=== PATIENT | male | born 1935 | race Caucasian/White ===

== ENCOUNTER → 2016-07-05 | Outpatient (REF) | payer MEDICARE, OTHER ==
[2016-07-05 19:48] LABS: IMMUNOGLOBULIN G 1110 MG/DL (681-1648); IMMUNOGLOBULIN M 41.7 MG/DL (40-230); TOTAL PROTEIN 9.7 GM/DL (6.4-8.2)
[2016-07-06 12:02] LABS: ALBUMIN % 35.4 % (55.8-66.1)
[2016-07-06 12:03] LABS: ALBUMIN 3.43 GM/DL (3.29-5.55); GAMMA GLOBULIN % 9.9 % (11.1-18.8)
[2016-07-08 00:06] LABS: FREE KAPPA LIGHT CHAINS SERUM 60.31 mg/L (3.30-19.40); FREE LAMBDA LIGHT CHAINS SERUM 11.39 mg/L (5.71-26.30); KAPPA/LAMBDA RATIO SERUM 5.29 (0.26-1.65)
== END ==
LOC: M LAB REF 16:25
PROVIDERS: ATTEND Internal Medicine Medical Oncology
DX: D47.2 Monoclonal gammopathy (principal)

== ENCOUNTER → 2017-01-11 | Outpatient (REF) | payer MEDICARE, OTHER ==
[2017-01-11 14:12] LABS: IMMUNOGLOBULIN G 1020 MG/DL (681-1648); IMMUNOGLOBULIN M 50.4 MG/DL (40-230); TOTAL PROTEIN 9.8 GM/DL (6.4-8.2)
[2017-01-13 00:06] LABS: BETA 2 MICROGLOBULIN 7.2 mg/L (0.6-2.4); FREE KAPPA LIGHT CHAINS SERUM 54.4 mg/L (3.3-19.4); FREE LAMBDA LIGHT CHAINS SERUM 11.1 mg/L (5.7-26.3); KAPPA/LAMBDA RATIO SERUM 4.9 (0.26-1.65)
[2017-01-16 12:35] LABS: ALBUMIN 3.19 GM/DL (3.29-5.55); ALBUMIN % 32.5 % (55.8-66.1); GAMMA GLOBULIN % 8.9 % (11.1-18.8)
== END ==
LOC: M LAB REF 13:35
PROVIDERS: ATTEND Internal Medicine Medical Oncology
DX: D47.2 Monoclonal gammopathy (principal)

== ENCOUNTER → 2017-01-31 | Outpatient (REF) | payer MEDICARE, OTHER | LOC: M LAB REF 14:11 | PROVIDERS: ATTEND Internal Medicine Medical Oncology | DX: D47.2 Monoclonal gammopathy (principal) ==

== ENCOUNTER → 2017-04-17 | Outpatient (CLI) | payer MEDICARE, OTHER ==
[~2017-04-17] MED LIST: LIDOCAINE 1% MDV 20ML VIAL As Ordered
== END ==
LOC: M RADPRO 09:13
DX: C83.00 Small cell B-cell lymphoma, unspecified site (principal); N28.89 Other specified disorders of kidney and ureter
CPT/HCPCS: 38505

== ENCOUNTER → 2017-04-26 | Outpatient (REF) | payer MEDICARE, OTHER ==
[2017-04-27 11:19] LABS: HEPATITIS B SURFACE ANTIGEN NEGATIVE (NEGATIVE)
[2017-04-27 11:40] LABS: HEPATITIS B CORE ANTIBODY IGM NEGATIVE (NEGATIVE)
== END ==
LOC: M LAB REF 17:23
DX: C83.00 Small cell B-cell lymphoma, unspecified site (principal)
CPT/HCPCS: 87340

== ENCOUNTER → 2017-05-09 | Outpatient (REF) | payer MEDICARE, OTHER ==
[2017-05-09 13:48] LABS: HEPATITIS B SURFACE ANTIGEN NEGATIVE (NEGATIVE)
[2017-05-09 14:17] LABS: HEPATITIS B CORE ANTIBODY IGM NEGATIVE (NEGATIVE)
== END ==
LOC: M LAB REF 12:40
DX: C85.90 Non-Hodgkin lymphoma, unspecified, unspecified site (principal)
CPT/HCPCS: 87340

== ENCOUNTER → 2017-06-18 | Outpatient (CLI) | payer MEDICARE, OTHER ==
[~2017-06-18] MED LIST changes: +GASTROGRAFIN SOLUTION 30ML (Q9963) As Ordered; +ISOVUE-370 76% 100ML VIAL (Q9967) As Ordered; -LIDOCAINE 1% MDV 20ML VIAL As Ordered
== END ==
LOC: M RAD 08:29
DX: C88.4 Extranodal marginal zone B-cell lymphoma of mucosa-associated lymphoid tissue [MALT-lymphoma] (principal); Z92.21 Personal history of antineoplastic chemotherapy; R18.8 Other ascites; K76.89 Other specified diseases of liver; N28.89 Other specified disorders of kidney and ureter; J84.10 Pulmonary fibrosis, unspecified
CPT/HCPCS: Q9963

== ENCOUNTER → 2018-02-11 | Outpatient (CLI) | payer MEDICARE, OTHER ==
[~2018-02-11] MED LIST changes: +ASPI81TA85 PO; +FLOM0.4C39 PO; -GASTROGRAFIN SOLUTION 30ML (Q9963) As Ordered; +GASTROGRAFIN SOLUTION 30ML (Q9963) As Ordered ONE; +HYDR25TAB PO; +INDO50CA PO; -ISOVUE-370 76% 100ML VIAL (Q9967) As Ordered; +ISOVUE-370 76% 100ML VIAL (Q9967) As Ordered ONE; +METF500T4 PO; +PRAV40TA2 PO; +RAMI1CAP22 PO
--- NOTE | 2018-02-11 15:41 | REP ---
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 Assess response to treatment. Comparison CT study: June 18, 2017. CT contrast dose: 100 ml of intravenous Isovue 370. CT findings: There is no change in the appearance of scattered right hilar and pretracheal lymph nodes in the interval since the June 18, 2017 study. The right and left paravertebral soft tissue fullness seen inferiorly just above the diaphragmatic hiatus is again noted. The largest lymph node here is on the right and measures 1.1 cm in short axis dimension, previously 1.7 cm. This appears slightly smaller. The surrounding paravertebral soft-tissue infiltration is approximately the same. On the left posterolateral to the descending aorta. There is a 0.9 cm lymph node which is unchanged. No other significant intrathoracic disease. No infiltrate is seen. There are small bullae in the lung bases. There is calcific pleural plaquing visible on the diaphragm and right pleural surfaces. Some pleural plaquing and pleural calcification is also noted on the left. Impression: Stable paravertebral soft-tissue infiltration. There is a right paravertebral lymph node 1.1 cm in diameter today which of which previously measured 1.7 cm. Otherwise unchanged. Electronically Signed by Conor Moreno MD 02/11/2018 08:12 P
--- NOTE | 2018-02-11 15:42 | REP ---
CT abdomen pelvis with IV and oral contrast: History: Marginal zone lymphoma on chemotherapy. Monitoring response to treatment. Comparison CT study June 18, 2017. CT contrast dose: 100 ml of intravenous Isovue [address] findings: There is mild to moderate diffuse abdominal ascites again noted. The ascites appears to have increased slightly particularly in the pelvic reflections. There is a diffuse infiltrative soft tissue process surrounding the left kidney as before. The soft tissue rind surrounding the left kidney may be slightly thinner or smaller although it remains extensive. Hepatic cysts are again seen. There is a little induration in omental fat. Scattered in the mid abdomen. No small or large bowel soft tissue mass is seen. No obstructive lesion is seen. There is an intrarenal calculus in the right kidney without hydronephrosis. No pancreatic lesion is seen. There are cysts in the left kidney and in the liver, unchanged. Impression: Interval increase in the amount of ascites. Subtle decrease in the soft tissue rind infiltrating and surrounding the left kidney. Stable hepatic cysts. Electronically Signed by Conor Moreno MD 02/11/2018 08:13 P
== END ==
LOC: M RAD 09:19
PROVIDERS: ATTEND Internal Medicine Medical Oncology
DX: C88.4 Extranodal marginal zone B-cell lymphoma of mucosa-associated lymphoid tissue [MALT-lymphoma] (principal); K76.89 Other specified diseases of liver
CPT/HCPCS: 71260; 74177; Q9963; Q9967

== ENCOUNTER → 2018-03-12 | Outpatient (CLI) | payer MEDICARE, OTHER ==
[~2018-03-12] MED LIST changes: -GASTROGRAFIN SOLUTION 30ML (Q9963) As Ordered ONE; -ISOVUE-370 76% 100ML VIAL (Q9967) As Ordered ONE; +LIDOCAINE 1% MDV 20ML VIAL As Ordered ONE
[2018-03-12 10:51] LABS: APPEARANCE, BODY FLUID TURBID (CLEAR); ASCITES FL COLOR PINK (COLORLESS); SOURCE, BODY FLUID ASCITES
[2018-03-12 12:01] LABS: SOURCE, BODY FLUID ALBUMIN ASCITES
[2018-03-12 12:43] LABS: AMYLASE, BODY FLUID 39 U/L (NOT ESTABLISHED); LDH, BODY FLUID 90 U/L (NOT ESTABLISHED); SOURCE, BODY FLUID AMYLASE ASCITES; SOURCE, BODY FLUID GLUCOSE ASCITES; SOURCE, BODY FLUID LDH ASCITES; SOURCE, BODY FLUID TOT PROTEIN ASCITES; TOTAL PROTEIN, BODY FLUID 6.3 G/DL (NOT ESTABLISHED)
--- NOTE | 2018-03-12 18:07 | REP ---
Ultrasound-guided paracentesis The procedure was performed under the direct supervision of Dr. Moreno. The risks and benefits of the procedure were explained to the patient and informed consent was obtained. The largest pocket of fluid was localized in the right upper quadrant using ultrasound guidance. The skin was prepped and draped in a sterile fashion. 1% lidocaine was used as a local anesthetic. An 8-Azeri multi side-hole catheter was inserted using trocar technique. 200 ml of opaque pink colored fluid, which may be chylous fluid, was withdrawn and sent to the lab for analysis. The patient tolerated the procedure well and there were no immediate complications. After the appropriate amount of monitored convalescence the patient was discharged from the department. Reviewed by CARL Wright 03/12/2018 05:18 P Electronically Signed by Conor Moreno MD 03/12/2018 05:58 P
== END ==
LOC: M RADPRO 08:54
PROVIDERS: ATTEND Internal Medicine Medical Oncology
DX: R18.8 Other ascites (principal)

== ENCOUNTER → 2018-07-02 | Outpatient (CLI) | payer MEDICARE, OTHER ==
[~2018-07-02] MED LIST changes: +ACET-683 PO; -INDO50CA PO; +INDO50CA11 PO; -LIDOCAINE 1% MDV 20ML VIAL As Ordered ONE
--- NOTE | 2018-07-02 17:03 | REP ---
PET/CT: History: Restaging marginal zone lymphoma. The patient is status post chemotherapy. Comparisons: No comparison PET CTs. Comparison is made with CT studies of the chest, abdomen and pelvis, the most recent of which is from February 11, 2018. Infiltrative mass was discovered on CT abdomen and pelvis February 23, 2017 encasing the left kidney. TECHNIQUE: 52 minutes following the intravenous injection of a 9.54 mCi dose of F-18 FDG, three-dimensional PET scintigraphy is acquired from the skull base to the proximal thighs. Triplanar noncontrast CT scanning is acquired through the same anatomic range for attenuation correction, and image registration with scan parameters optimized to minimize radiation exposure to the patient. PET scintigraphy and CT datasets were fused and displayed on a workstation with multiplanar and projection display capability. PET/CT Findings: There is persistent soft tissue density infiltrating in the perirenal space around the left kidney fairly extensively. Although this has decreased since the original CT study February 23, 2017, it is seen to be mildly hypermetabolic. Maximum standard uptake value in this tissue ranges up to 4.19 in the left perirenal space. There is also mild increased uptake in the patient's mild scattered ascites. Maximum standard uptake value within this ascitic fluid ranges between 2.42 and 4.89. This is suggestive of peritoneal involvement or inflammation. There are new areas of interstitial lung disease involving the right middle lobe and right lower lobe in a peripheral pattern. There is mildly hypermetabolic parenchymal uptake associated with this in the right middle lobe and right lower lobe. Maximum standard uptake value in this pulmonary parenchymal disease ranges from 2.5-3.02. This interstitial disease is new when compared with the CT study of the chest dated February 11, 2018. It is nonspecific and could be pulmonary lymphangitic disease or inflammation. No other abnormal hypermetabolic uptake is seen. Incidental CT findings include calcific pleural plaquing bilaterally. Granulomatous lymph node calcifications in the subcarinal region, hepatic cysts, and some vascular calcification. Impression: Mildly hypermetabolic uptake is seen in the soft tissue disease encasing the left kidney as well as within the peritoneal space and in new areas of interstitial disease involving the right lower lobe and right middle lobe. Electronically Signed by Conor Moreno MD 07/02/2018 10:32 P
== END ==
LOC: M PLARAD 13:15
PROVIDERS: ATTEND Internal Medicine Hematology & Oncology
DX: R91.8 Other nonspecific abnormal finding of lung field (principal); C88.4 Extranodal marginal zone B-cell lymphoma of mucosa-associated lymphoid tissue [MALT-lymphoma]; Z92.21 Personal history of antineoplastic chemotherapy
CPT/HCPCS: 78815; A9552

== ENCOUNTER → 2018-07-10 | Outpatient (CLI) | payer MEDICARE, OTHER ==
[2018-07-10 12:49] LABS: ALBUMIN 3.4 GM/DL (3.2-5.2); ALT/SGPT 16 U/L (12-78); BILIRUBIN,DIRECT 0.1 MG/DL (0.0-0.2); BILIRUBIN,TOTAL 0.4 MG/DL (0.2-1.0); TOTAL PROTEIN 9.4 GM/DL (6.4-8.2)
[2018-07-10 12:57] LABS: HEPATITIS B SURFACE ANTIBODY NEGATIVE (POSITIVE)
[2018-07-10 13:08] LABS: HEPATITIS B SURFACE ANTIGEN NEGATIVE (NEGATIVE)
[2018-07-12 08:06] LABS: ANTI-MITOCHONDRIAL ANTIBODY <20.0 Units (0.0-20.0); ANTI-SMOOTH MUSCLE ANTIBODY 4 Units (0-19); ANTINUCLEAR ANTIBODIES DIRECT Negative (Negative); HEPATITIS A IgG TOTAL Negative (Negative); LIVER-KIDNEY MICROSOMAL ABY <20.1 Units (0.0-20.0)
== END ==
LOC: M LAB 11:23
PROVIDERS: ATTEND Internal Medicine Gastroenterology
DX: R18.8 Other ascites (principal)

== ENCOUNTER → 2018-07-17 | Outpatient (CLI) | payer MEDICARE, OTHER ==
[2018-07-17 13:15] LABS: SOURCE, BODY FLUID ASCITES
[2018-07-17 13:16] LABS: APPEARANCE, BODY FLUID CLOUDY (CLEAR); ASCITES FL COLOR PINK (COLORLESS)
[2018-07-17 14:48] LABS: SOURCE, BODY FLUID GLUCOSE ASCITES; SOURCE, BODY FLUID TOT PROTEIN ASCITES; SOURCE, BODY FLUID TRIG ASCITES; TOTAL PROTEIN, BODY FLUID 7.2 G/DL (NOT ESTABLISHED); TRIGLYCERIDE, BODY FLUID 977 MG/DL (NOT ESTABLISHED)
[2018-07-17 15:58] LABS: LDH, BODY FLUID 86 U/L (NOT ESTABLISHED); SOURCE, BODY FLUID LDH ASCITES
--- NOTE | 2018-07-18 11:01 | REP ---
Ultrasound-guided paracentesis The procedure was performed under the direct supervision of Dr. Nash. The risks and benefits of the procedure were explained to the patient and informed consent was obtained. The largest pocket of fluid was localized in the right upper quadrant using ultrasound guidance. The skin was prepped and draped in a sterile fashion. 1% lidocaine was used as a local anesthetic. An 8-Bolivian multi side-hole catheter was inserted using trocar technique. 725 ml of cloudy pain fluid was withdrawn and sent to the lab for analysis. The patient tolerated the procedure well and there were no immediate complications. After the appropriate amount of monitored convalescence the patient was discharged from the department. Reviewed by CARL Wright 07/17/2018 03:14 P Electronically Signed by Chalo Nash MD 07/18/2018 10:49 A
== END ==
LOC: M RADPRO 11:38
PROVIDERS: ATTEND Internal Medicine Hematology & Oncology
DX: C88.4 Extranodal marginal zone B-cell lymphoma of mucosa-associated lymphoid tissue [MALT-lymphoma] (principal); C85.80 Other specified types of non-Hodgkin lymphoma, unspecified site; R18.8 Other ascites; Z79.899 Other long term (current) drug therapy

== ENCOUNTER → 2019-08-25 | Outpatient (CLI) | payer MEDICARE ==
[~2019-08-25] MED LIST changes: -INDO50CA11 PO; +INDO50CA91 PO; +ISOVUE-300 61% 50ML VIAL As Ordered ONE; +METF-838 PO; -METF500T4 PO; +SODIUM BICARBONATE 8.4% INJ 50MEQ 50 ML VIAL As Ordered ONE
[2019-08-25 11:55] LABS: APPEARANCE, BODY FLUID TURBID (CLEAR); SOURCE, BODY FLUID PERITONEAL
[2019-08-25 12:33] LABS: SOURCE, BODY FLUID TOT PROTEIN PERITONEAL
[2019-08-25 13:07] VITALS: BP 125/63
--- NOTE | 2019-08-25 14:57 | REP ---
Ultrasound-guided paracentesis The procedure was performed by CARL Potts, under the direct supervision of Dr. Moreno. The risks and benefits of the procedure were explained to the patient and informed consent was obtained both verbally and written. Directly prior to the start of the procedure, a formal timeout was completed in the procedure room. Under ultrasound guidance, the largest pocket of fluid in the right flank was localized and skin was marked. The skin was then prepped and draped in a sterile fashion. 1 ml of buffered lidocaine was used as a local anesthetic. Using ultrasound guidance, an 8-Frisian multi side-hole catheter was inserted using trocar technique. 8,700 mL of Chylous fluid was withdrawn, 200 ml were sent to the lab for further analysis. and the rest was discarded. The patient tolerated the procedure well and there were no immediate complications. After the appropriate monitored convalescence the patient was discharged from the department. Reviewed by CARL Jurado 08/25/2019 02:15 P Electronically Signed by Conor Moreno MD 08/25/2019 02:49 P
== END ==
LOC: M IRPRO 10:32
PROVIDERS: ATTEND Internal Medicine Hematology & Oncology
DX: R18.8 Other ascites (principal); C85.80 Other specified types of non-Hodgkin lymphoma, unspecified site; C90.00 Multiple myeloma not having achieved remission
CPT/HCPCS: 49083; 84157; 87070; 87205; 88108; 88305; 88313; 89051; Q9967

== ENCOUNTER → 2019-09-02 | Outpatient (CLI) | payer MEDICARE, OTHER ==
[~2019-09-02] MED LIST changes: -ASPI81TA85 PO; +ASPI81TA86 PO; +GASTROGRAFIN SOLUTION 30ML (Q9963) As Ordered ONE; -ISOVUE-300 61% 50ML VIAL As Ordered ONE; +ISOVUE-370 76% 100ML VIAL As Ordered ONE; -SODIUM BICARBONATE 8.4% INJ 50MEQ 50 ML VIAL As Ordered ONE
--- NOTE | 2019-09-02 23:39 | REP ---
REASON: History of lymphoma and known ascites. Multiple priors reviewed, latest 02/11/2018. CONTRAST: 100 mL Isovue-370. There is ascites, which has increased from the prior exam. There are multiple hepatic cysts, status quo. The spleen, pancreas, adrenal glands, and right kidney are unchanged. The left perinephric stranding has improved compared to the prior exam. There is a small pancreatic cyst, status quo. There is no evidence of a new intra-abdominal mass or adenopathy. There is para-aortic adenopathy, which is subtle and unchanged. There is no change in the osseous structures. IMPRESSION: Significant ascites and other findings, as described above. The abdominal aorta and para-aortic regions are essentially unchanged. Electronically Signed by Jim Rodriguez DO 09/03/2019 09:26 A
--- NOTE | 2019-09-02 23:50 | REP ---
REASON: History of lymphoma. COMPARISON: Multiple, the latest 02/11/2018. CONTRAST: 100 mL Isovue-370. For a description of the imaged upper abdomen, see abdomen and pelvis CT. The mediastinum and pulmonary viktor are essentially unchanged without evidence of a mass or adenopathy. There are no pleural or pericardial effusions. There is no significant change in the appearance of the imaged osseous structures. Evaluation of the lung hoffmann shows chronic changes, status quo. There are no new abnormal nodules, masses, or opacities. IMPRESSION: Stable CT examination of the chest. Electronically Signed by Jim Rodriguez DO 09/03/2019 09:27 A
== END ==
LOC: M RAD 11:28
PROVIDERS: ATTEND Internal Medicine Hematology & Oncology
DX: R18.8 Other ascites (principal); C85.80 Other specified types of non-Hodgkin lymphoma, unspecified site; C90.00 Multiple myeloma not having achieved remission
CPT/HCPCS: 71260; 74177; Q9963; Q9967

== ENCOUNTER → 2020-01-16 | Outpatient (CLI) | payer MEDICARE ==
[~2020-01-16] MED LIST changes: -GASTROGRAFIN SOLUTION 30ML (Q9963) As Ordered ONE; +ISOS30TA4 PO; -ISOVUE-370 76% 100ML VIAL As Ordered ONE; +LISI10TA4 PO; +OMEP1CAP73 PO; +SODIUM BICARBONATE 8.4% INJ 50MEQ 50 ML VIAL As Ordered ONE; +SPIR-10 PO; +TORS20TA2 PO
[2020-01-16 11:47] VITALS: BP 101/53
--- NOTE | 2020-01-16 16:36 | REP ---
INDICATION: ASCITES COMPARISON: None. TECHNIQUE: The procedure was performed by CARL Potts, under the direct supervision of Dr. Nash The risks and benefits of the procedure were explained to the patient and an informed consent was obtained both verbally and written. Directly prior to the start of the procedure a formal time-out was completed in the procedure room. The largest pocket of fluid was localized in the right flank using ultrasound guidance. The skin was prepped and draped in a sterile fashion. Eleven ML of buffered lidocaine was used as a local anesthetic. An 8-Bengali multi side-hole catheter was inserted using trocar technique. 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 The patient tolerated the procedure well and there were no immediate complications. After the appropriate amount of monitored convalescence, the patient was discharged from the department. 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 <Electronically signed by Catina De Leon > 01/16/20 [id number] <Electronically signed by Chalo Nash > 01/16/20 [id number]
== END ==
LOC: M IRPRO 09:41
PROVIDERS: ATTEND Internal Medicine Hematology & Oncology
DX: C85.80 Other specified types of non-Hodgkin lymphoma, unspecified site (principal); R83.6 Abnormal cytological findings in cerebrospinal fluid

== ENCOUNTER → 2020-02-11 | Outpatient (REF) | payer MEDICARE, OTHER ==
[~2020-02-11] MED LIST changes: +CHOL4POW3 PO; +FURO20TA2 PO; +PRAV80TA2 PO; +REVL10CA2 PO; -SODIUM BICARBONATE 8.4% INJ 50MEQ 50 ML VIAL As Ordered ONE
== END ==
LOC: M LAB REF 08:39
PROVIDERS: ATTEND Internal Medicine Hematology & Oncology
DX: C90.00 Multiple myeloma not having achieved remission (principal); Z12.12 Encounter for screening for malignant neoplasm of rectum